=== PATIENT | female | born 2000 | race Caucasian/White ===

== ENCOUNTER → 2025-01-26 13:46 | Outpatient (BNVA) | payer BC, MEDICAID, SELFPAY | PROVIDERS: PCP Family Medicine; Visit Provider Family Medicine | DX: R10.9 Unspecified abdominal pain (principal); G89.29 Other chronic pain; K92.1 Melena; L81.8 Other specified disorders of pigmentation | CPT/HCPCS: 80053; 84443; 85025; 86705; 86706; 86709; 86803; 87340; 87806 ==

== ENCOUNTER 2025-02-24 09:03 | Day surgery (SDC) | payer BC, MEDICAID, SELFPAY ==
[2025-02-24 09:22] VITALS: BP 130/67; PULSE 65; RESP 18; TEMP 36.1; O2SAT 99; BMI 25.8
--- NOTE | 2025-02-24 10:00 | W.PM.OPSUD ---
Surgery/Procedure H&P Update DATE OF PROCEDURE: February 24, 2025 DATE H&P PERFORMED: 02/12/25 H&P UPDATE INFORMATION: I have reviewed H&P completed within last 30 days, I have examined patient prior to procedure, No changes to prior documentation and Risks and benefits of the procedure reviewed PLANNED PROCEDURE: Operation Date: 02/24/25 10:45 Proposed Procedures p EGD EGD with Biopsy [id number] G0105 K52.9(Not Applicable) - Jose George MD s Colonoscopy(Not Applicable) - Jose George MD
[2025-02-24 10:06] LABS: OR HCG Qualitative Urine Negative (Negative)
--- NOTE | 2025-02-24 10:14 | P.ANESASSM_ITS ---
Pre-Anesthetic Assessment Height/Weight: Height 1.68 m Weight 72.575 kg Temp Pulse Resp BP Pulse Ox O2 Del Method 97.0 F L 65 18 130/67 99 Room Air 02/24/25 09:22 02/24/25 09:22 02/24/25 09:22 02/24/25 09:22 02/24/25 09:22 02/24/25 09:22 Operation Date: 02/24/25 10:45 Proposed Procedures p EGD EGD with Biopsy [id number] G0105 K52.9(Not Applicable) - Jose George MD s Colonoscopy(Not Applicable) - Jose George MD Familial anesthetic complications: Never had anesthesia Last intake: Intake Last Liquid Date 02/23/25 Last Liquid Time 22:00 Last Solid Date 02/22/25 GI Peptic Ulcer Disease Inflammatory bowel disease Medications/Allergies Home Medications ?Medication ?Instructions ?Recorded ?Confirmed ?Last Taken ?Type nystatin 100,000 unit/gram topical 1 applic topical BI D #30 grams 01/26/25 02/24/25 Unknown Rx cream pantoprazole 40 mg tablet,delayed 40 mg PO DAILY #30 t abs 01/26/25 02/24/25 Unknown Rx release sucralfate 1 gram tablet (Carafate) 1 g PO BID #60 tab s 01/26/25 02/24/25 Unknown Rx Allergies Allergy/AdvReac Type Severity Reaction Status Date / Time No Known Allergies Allergy Unverified 02/24/25 09:20 Current Medications Generic Name Dose Route Start Last Admin Trade Name Freq PRN Reason Stop Dose Admin Sodium Chloride 1,000 mls @ 15 mls/hr 02/24/25 09:16 02/24/25 09:34 Sodium Chloride 0.9% IV 02/25/25 09:15 15 mls/hr .Q24H PRN Administration COLONOSCOPY FLUIDS PFSH Anesthesia Medical History (Updated 02/12/25 @ 14:58 by Jose George MD) History of testosterone therapy PUD (peptic ulcer disease) Surgical History No history of previous surgery Family History Mother Hypertension Heart disease Father Hypertension Heart disease Social History (Updated 01/26/25 @ 13:28 by Juliana Hein MD) Smoking and tobacco/nicotine status: current every day tobacco/nicotine user e- cigarettes E-Cigarette Details: vaporizer device and with nicotine Quit status (tobacco/nicotine): considering quitting Alcohol intake: never Substance/Drug Use: former Date of last use: 2017 Former substance use details: meth Household members: children and friend(s) Marital status: Single Number of children: 1 Current occupational status: employed Current occupation: [employer] Current gender identity: Female Special dieter needs: No Agree to transfusion: Yes
--- NOTE | 2025-02-24 10:50 | P.ANESASSM_ITS ---
Pre-Anesthetic Assessment Height/Weight: Height 5 ft 6 in Weight 160 lb Temp Pulse Resp BP Pulse Ox O2 Del Method 97.0 F L 65 18 130/67 99 Room Air 02/24/25 09:22 02/24/25 09:22 02/24/25 09:22 02/24/25 09:22 02/24/25 09:22 02/24/25 09:22 Preop Diagnosis: GERD Operation Date: 02/24/25 10:45 Proposed Procedures p EGD EGD with Biopsy [id number] G0105 K52.9(Not Applicable) - Jose George MD s Colonoscopy(Not Applicable) - Jose George MD Was Beta Josh taken within 24 hours: N/A Was Clonidine taken within 24 hours: N/A Last intake: Intake Last Liquid Date 02/23/25 Last Liquid Time 22:00 Last Solid Date 02/22/25 Social No alcohol and No tobacco Exam alert, oriented x 3, clear to auscultation bilaterally and regular rate & rhythm Airway Submandibular: within normal limits Cervical ROM: within normal limits Mallampati: Class II Dentition: full Anesthetic Plan ASA status: 2 Anesthesia: MAC Other: No prior issues with anesthesia Completed bowel prep GERD on Protonix Current smoker Labs from 01/26/2025 reviewed and acceptable for procedure today Plan for MAC anesthesia Medications/Allergies Home Medications ?Medication ?Instructions ?Recorded ?Confirmed ?Last Taken ?Type nystatin 100,000 unit/gram topical 1 applic topical BI D #30 grams 01/26/25 02/24/25 Unknown Rx cream pantoprazole 40 mg tablet,delayed 40 mg PO DAILY #30 t abs 01/26/25 02/24/25 Unknown Rx release sucralfate 1 gram tablet (Carafate) 1 g PO BID #60 tab s 01/26/25 02/24/25 Unknown Rx Allergies Allergy/AdvReac Type Severity Reaction Status Date / Time No Known Allergies Allergy Unverified 02/24/25 09:20 Current Medications Generic Name Dose Route Start Last Admin Trade Name Freq PRN Reason Stop Dose Admin Sodium Chloride 1,000 mls @ 15 mls/hr 02/24/25 09:16 02/24/25 09:34 Sodium Chloride 0.9% IV 02/25/25 09:15 15 mls/hr .Q24H PRN Administration COLONOSCOPY FLUIDS PFSH Anesthesia Medical History (Updated 02/12/25 @ 14:58 by Jose George MD) History of testosterone therapy PUD (peptic ulcer disease) Surgical History No history of previous surgery Family History Mother Hypertension Heart disease Father Hypertension Heart disease Social History (Updated 01/26/25 @ 13:28 by Juliana Hein MD) Smoking and tobacco/nicotine status: current every day tobacco/nicotine user e- cigarettes E-Cigarette Details: vaporizer device and with nicotine Quit status (tobacco/nicotine): considering quitting Alcohol intake: never Substance/Drug Use: former Date of last use: 2017 Former substance use details: meth Household members: children and friend(s) Marital status: Single Number of children: 1 Current occupational status: employed Current occupation: [employer] Current gender identity: Female Special dieter needs: No Agree to transfusion: Yes
[2025-02-24 11:02] VITALS: BP 119/71; PULSE 51; RESP 16; TEMP 36.1; O2SAT 98
--- NOTE | 2025-02-24 11:40 | ANE.PACU2 ---
Inpatient post-anesthesia follow up: Airway intact: Yes Vital signs: Temperature 97.0 F Pulse Rate 51 Respiratory Rate 16 Blood Pressure 119/71 Pulse Oximetry 98 Oxygen Delivery Me thod Room Air Oxygen Flow Rate Fraction of Inspir ed Oxygen Hydration adequate: Yes Nausea and vomiting: No Pain level: 1 Mental status: Baseline
== END 2025-02-24 11:40 | disposition home or self-care (01) ==
PROVIDERS: Student in an Organized Health Care Education/Training Program; PCP Family Medicine; Visit Provider Student in an Organized Health Care Education/Training Program
PROC: 0DJ08ZZ Inspection of Upper Intestinal Tract, Via Natural or Artificial Opening Endoscopic (ICD-10-PCS; principal; 2025-02-24 10:45)
PROC: 0DJD8ZZ Inspection of Lower Intestinal Tract, Via Natural or Artificial Opening Endoscopic (ICD-10-PCS; CPT 45378; 2025-02-24 10:45)
DX: K52.9 Noninfective gastroenteritis and colitis, unspecified (principal); R12 Heartburn; K29.30 Chronic superficial gastritis without bleeding; K27.9 Peptic ulcer, site unspecified, unspecified as acute or chronic, without hemorrhage or perforation; F17.290 Nicotine dependence, other tobacco product, uncomplicated; K21.9 Gastro-esophageal reflux disease without esophagitis
CPT/HCPCS: 43239; 45378; 81025; 88305; 88342; J2704; J7030; J9999